=== PATIENT | male | born 1950 | race Caucasian/White ===

== ENCOUNTER 2021-07-23 07:29 | Day surgery (SDC) | payer MEDICARE, OTHER ==
[~2021-07-23] VITALS: Ht 182.9 cm; Wt 90.4 kg
[~2021-07-23 07:29] MED LIST: ACETAMINOPHEN 500 MG TABLET PO PRN; DEXAMETHASONE SOD PHOS 20 MG/5 ML VIAL. ONE; FAMOTIDINE 20 MG/2 ML VIAL ONE; GLYCOPYRROLATE 1 MG/5 ML VIAL. ONE; HYDROmorphone 2 MG/ML VIAL IVP PRN; HYDROmorphone 2 MG/ML VIAL ONE; IV RINGERS,LACTATED 1000ML 1,000 ML IV SCH; KETOROLAC 30 MG/ML VIAL. ONE; LIDOCAINE 2% PF 5 ML VIAL. ONE; MORPHINE SULFATE 2 MG/ML INJ. IVP PRN; NEOSTIGMINE METHYLSULFATE 5 MG/5 ML SYRINGE. ONE; ONDANSETRON PF 4 MG/2 ML VIAL. ONE; PROCHLORPERAZINE 10 MG/2 ML VIAL. IVP PRN; PROPOFOL 10 MG/ML (20ML) VIAL. IV ONE; ROCURONIUM 50 MG/5 ML VIAL. ONE; fentaNYL PF VIAL 100 MCG/2 ML VIAL IVP PRN
[2021-07-23] MEDS ORDERED: TAMS0.4C97 PO (08:06)
[2021-07-23] MEDS ORDERED: GABA600T7 PO (08:06)
[2021-07-23] MEDS ORDERED: TRAM50TA PO (08:06)
[2021-07-23] MEDS ORDERED: MIDAZOLAM HCL/PF 2 MG/2 ML VIAL. ONE (08:53)
[2021-07-23] MEDS ORDERED: BUPIVACAINE-EPI 0.25% 30 ML VIAL KIT. ONE (08:56)
[2021-07-23] MEDS ORDERED: MINERAL OIL for SURGERY 10 ML VIAL. MC ONE (08:56)
--- NOTE | 2021-07-23 10:25 | PDOC4 ---
Operative Note Operative Note Date: July 23, 2021 at 1022 Preoperative diagnosis: Left inguinal hernia Postoperative diagnosis: Same Procedure: Robotic assisted laparoscopic left inguinal hernia repair with mesh Surgeon: Deuce Specimen: None Dictation: Patient is a 71-year-old gentleman with complaints of left groin pain and a bulge consistent with a left inguinal hernia. The procedure of robotic assisted laparoscopic left inguinal hernia repair with mesh was explained to the patient detail risk benefits were also discussed including bleeding infection injury to intra-abdominal contents possible necessitating further open operations alternatives to this procedure also discussed with the patient who seemed to understand and gave a verbal written consent to have the procedure performed. Patient was taken to the operating room placed in the supine position general anesthesia was initiated once patient was sleeping intubated placed in low lithotomy position and his abdomen was prepped and draped usual sterile fashion using DuraPrep. Area just above the umbilicus was injected with quarter percent Marcaine with epinephrine incision was made with a blade scalpel and a varies needle was placed within the abdomen creating pneumoperitoneum once this was complete a millimeter da Laura port was placed in the 8 mm da Laura camera was placed within the abdomen which was inspected was noted there was a hernia on the left side with some incarcerated sigmoid colon. 8 mm ventral port was placed in left midabdomen and an 8 mm da Laura port was placed in the right midabdomen all under direct visualization da Laura robot is brought and docked all port sites surgeon went to the robotic console using a grasper and Endo Cori scissors the sigmoid colon was reduced from the hernia defect a incision was made in the peritoneum and this was extended posteriorly reducing the hernia sac and contents. A large Bard 3D max mesh for the left side was placed over the defect and the peritoneum was closed over the mesh with a running 2 OV lock absorbable suture. Suture was removed and the abdomen as well as the instruments the da Laura robot was undocked from all port sites all ports were removed the pneumoperitoneum reduced all port sites were closed with 4 subcuticular Monocryl Mastisol Steri-Strips and island dressings were applied. Patient was awakened and extubated in the operating room taken to recovery in stable condition all sponge instrument needle counts listed as correct estimated blood loss 5 mL PASCALE LÓPEZ MD Jul 23, 2021 10:25
[2021-07-23] MEDS ORDERED: OXYC-325 PO (10:27)
--- NOTE | 2021-07-23 10:29 | DISCH ---
DISCHARGE INSTRUCTIONS Condition on Discharge Condition on Discharge: Stable Activity After Discharge Activity Instructions for Disc: Avoid exertion Other activity instructions: No lifting more than 20 pounds for 2 Diet after Discharge Diet after Discharge: Regular Wound Incision Care Other wound/incision instructi: Nani showbernadette 24-hour Contacting the after DC Call your doctor for: If your condition worsens Follow-Up Follow up with: Dr. López in 2 weeks PASCALE LÓPEZ MD Jul 23, 2021 10:29
[2021-07-23] MEDS ORDERED: oxyCODONE/APAP 5/325 1 TAB TABLET PO ONE ×2 (11:00)
[2021-07-23] MEDS ORDERED: fentaNYL PF VIAL 100 MCG/2 ML VIAL ONE (11:04)
[2021-07-23 12:55] VITALS: BP 110/64
== END 2021-07-23 13:05 | disposition home or self-care (01) ==
LOC: SURG 07:29
PROVIDERS: ATTEND Surgery
DX: K40.30 Unilateral inguinal hernia, with obstruction, without gangrene, not specified as recurrent (principal); M19.90 Unspecified osteoarthritis, unspecified site; Z87.440 Personal history of urinary (tract) infections; Z79.899 Other long term (current) drug therapy; Z98.890 Other specified postprocedural states; Z87.891 Personal history of nicotine dependence; Z72.89 Other problems related to lifestyle; Z88.8 Allergy status to other drugs, medicaments and biological substances
CPT/HCPCS: 49650; A4364; A4930; A6219; C1781; J0690; J1100; J1170; J1885; J2250; J2405; J2704; J2710; J3010; J3490; A4657